=== PATIENT | female | born 1980 | race Caucasian/White ===

== ENCOUNTER 2019-07-04 17:08 | Emergency (ER) | payer OTHER ==
[2019-07-04] MEDS ORDERED: Rocephin 1000 MG INJ IM ONE (17:16)
[2019-07-04] MEDS ORDERED: TORAdol 30 mg Injection IM ONE (17:16)
[2019-07-04 17:19] VITALS: BP 146/100; PULSE 78; O2SAT 100
[2019-07-04] MEDS ORDERED: Rocephin 1000 MG INJ ONE (17:25)
[2019-07-04] MEDS ORDERED: TORAdol 30 mg Injection ONE (17:25)
[2019-07-04] MEDS ORDERED: XYLOCAINE 1% HCL 20 ML MDV ONE (17:25)
--- NOTE | 2019-07-04 17:27 | ERPHSYRPT ---
- History of Present Illness Time Seen by Provider: 07/04/19 17:24 Source: patient Exam Limitations: no limitations Patient Subjective Stated Complaint: pt here for swelling to right side of face today, had 7 teeth pulled, no fever Triage Nursing Assessment: pt alert, walked in, resp easy, skin w/d/p, has swelling to right side of face, Physician History: pt here for swelling to right side of face today, had 7 teeth pulled, no fever Timing/Duration: abrupt onset Severity: moderate ENT Location: dental Prearrival Treatment: no prearrival treatment Associated Symptoms: denies symptoms Allergies/Adverse Reactions: No Known Drug Allergies Allergy (Unverified 07/04/19 17:18) Home Medications: Venlafaxine HCl [Venlafaxine HCl ER] 37.5 mg DAILY 07/04/19 [History] Hx Tetanus, Diphtheria Vaccination/Date Given: Yes Hx Influenza Vaccination/Date Given: No Hx Pneumococcal Vaccination/Date Given: No Immunizations Up to Date: Yes - Review of Systems Constitutional: No Symptoms Eyes: No Symptoms Ears, Nose, & Throat: Loose Teeth Respiratory: No Symptoms Cardiac: No Symptoms Abdominal/Gastrointestinal: No Symptoms Musculoskeletal: No Symptoms - Past Medical History Pertinent Past Medical History: No - Past Surgical History Past Surgical History: No - Social History Smoking Status: Current every day smoker Exposure to second hand smoke: Yes Drug Use: none Patient Lives Alone: Yes - Female History Hx Last Menstrual Period: sept Hx Now: No - Nursing Vital Signs Nursing Vital Signs: Initial Vital Signs Temperature 98.3 F 07/04/19 17:13 Pulse Rate 78 07/04/19 17:13 Respiratory Rate 18 07/04/19 17:13 Blood Pressure 146/100 07/04/19 17:13 O2 Sat by Pulse Oximetry 100 07/04/19 17:13 Pain Scale Pain Intensity 7 - Physical Exam General Appearance: no apparent distress Eye Exam: bilateral eye: normal inspection Ear Exam: bilateral ear: auricle normal Nasal Exam: normal inspection Throat Exam: dental tenderness Neck Exam: normal inspection Cardiovascular/Respiratory Exam: chest non-tender Abdominal Exam: non-tender Neurologic Exam: alert, oriented x 3 Skin Exam: normal color SpO2 Interpretation: normal SpO2: 100 - Course Nursing assessment & vital signs reviewed: Yes Ordered Tests: Medication Summary Discontinued Medications Generic Name Dose Route Start Last Admin Trade Name Freq PRN Reason Stop Dose Admin Ceftriaxone Sodium 1,000 mg 07/04/19 17:16 Rocephin 1000 Mg Inj IM 07/04/19 17:17 STAT ONE Ketorolac Tromethamine 60 mg 07/04/19 17:16 Toradol 30 Mg Injection IM 07/04/19 17:17 STAT ONE - Progress Progress: improved, pain not gone completely Counseled pt/family regarding: diagnosis, need for follow-up - Departure Departure Disposition: Home Clinical Impression: Dental abscess Condition: Stable Critical Care Time: No Referrals: CELSA YOUSIF [Primary Care Provider] - Instructions: Tooth Abscess (DC), Dental Pain (DC) Additional Instructions: Discharge/Care Plan NIMCO ROSENTHAL was seen on 07/04/19 in the Emergency Room. The patient was counseled regarding Diagnosis,Lab results, Imaging studies, need for follow up and when to return to the Emergency Room. Prescriptions given: Discharge Note I have spoken with the patient and/or caregivers. I have explained the patient' s condition, diagnosis and treatment plan based on the information available to me at this time. I have answered the patient's and/or caregiver's questions and addressed any concerns. The patient and/or caregivers have as good understanding of the patient's diagnosis, condition and treatment plan as can be expected at this point. The vital signs have been stable. The patient's condition is stable and appropriate for discharge from the emergency department. The patient will pursue further outpatient evaluation with the primary care physician or other designated or consulting physician as outlined in the discharge instructions. The patient and/or caregivers are agreeable to this plan of care and follow-up instructions have been explained in detail. The patient and/or caregivers have received these instruction. The patient/and or caregivers are aware that any significant change in condition or worsening of symptoms should prompt an immediate return to this or the closest emergency department or call 911. Prescriptions: Cephalexin Mh 500 mg [Keflex 500 mg] 500 mg PO Q6H #40 capsule Naproxen 375 mg [Naprosyn 375 mg] 375 mg PO Q8H #30 tablet
== END 2019-07-04 17:53 | disposition home or self-care (01) ==
LOC: ED 17:08
DX: K04.7 Periapical abscess without sinus (principal); R22.0 Localized swelling, mass and lump, head; Z79.899 Other long term (current) drug therapy; F17.210 Nicotine dependence, cigarettes, uncomplicated
CPT/HCPCS: 96372; 99284; J0696; J1885